=== PATIENT | male | born 1985 | race Caucasian/White ===

== ENCOUNTER 2019-09-27 23:51 | Emergency (ER) | payer SELFPAY ==
[~2019-09-27] VITALS: Ht 170.2 cm; Wt 73.0 kg
[2019-09-28] MEDS ORDERED: NEOSPORIN OINT. PKT 1 PACKET ONE
[2019-09-28 00:01] VITALS: BP 141/101
[2019-09-28] MEDS ORDERED: FLUO10CA13 PO (00:08)
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
== END 2019-09-28 01:03 | disposition home or self-care (01) ==
LOC: ED 09-28 01:00
DX: S81.011A Laceration without foreign body, right knee, initial encounter (principal); S30.0XXA Contusion of lower back and pelvis, initial encounter; S70.02XA Contusion of left hip, initial encounter; R94.31 Abnormal electrocardiogram [ECG] [EKG]; X58.XXXA Exposure to other specified factors, initial encounter; Y93.89 Activity, other specified; Y92.89 Other specified places as the place of occurrence of the external cause; Y99.8 Other external cause status
CPT/HCPCS: 93005; 99283